=== PATIENT | female | born 2005 | race Two or more races ===

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

== ENCOUNTER 2024-04-29 19:55 | Emergency (ER) | payer OTHER, SELFPAY ==
[2024-04-29 19:57] VITALS: BP 115/79; PULSE 87; RESP 16; TEMP 36.9; O2SAT 97; BMI 30.9
--- NOTE | 2024-04-29 20:00 | ED.GENADULT ---
HPI - General Adult General Chief complaint: General Medical Stated complaint: Lip redness Time Seen by Provider: 04/29/24 20:02 Source: patient Mode of arrival: ambulatory Limitations: no limitations History of Present Illness ED Provider: Mine Roca PA-C HPI narrative: Patient is a 18 year old assigned female at with no reported medical history presenting to the emergency department today with a lower lip rash. Patient states that she went out last night, drinking, and this morning saw a rash to her inner lower lip. Patient states that she did not hit her lip and did not engage in any activity that would have injured her lip. Patient states that she does have a nervous habit of rubbing her lower lip with her upper lip which would put pressure on the lower lip against the teeth. Patient denies any dizziness, lightheadedness, abdominal pain, nausea, vomiting, fever, chills, blurry vision, double vision, loss of vision, chest pain, difficulty breathing, shortness of breath, back pain, night sweats, pain with urination, increased urinary frequency, increased urinary urgency, blood in her urine or stool, syncope or a near syncopal episode, recent trauma or falls, bowel incontinence, bladder incontinence, or any other complaints at this time. Location: mouth Relieving factors: none Exacerbating factors: none Associated symptoms: denies other symptoms Treatments prior to arrival: none Related Data Previous Rx's ?Medication ?Instructions ?Recorded cefuroxime axetil 500 mg tablet 500 mg PO BID 7 days #14 tabs 10/08/21 naproxen 500 mg tablet 500 mg PO BID PRN pain 7 days #14 07/25/22 tabs Allergies Allergy/AdvReac Type Severity Reaction Status Date / Time No Known Allergies Allergy Verified 04/29/24 19:58 Review of Systems Constitutional: Constitutional: Reports no additional constitutional complaints, Denies chills, Denies fever(s) and Denies night sweats Eyes: Eyes: Reports no additional eye complaints, Denies blurry vision, Denies change in vision, Denies diplopia, Denies eye discharge, Denies loss of vision and Denies eye pain ENT: Denies dizziness Comments: lower lip bruising Cardiovascular: Cardiovascular: Reports no additional cardiovascular complaints, Denies chest pain, Denies lightheadedness, Denies Loss of Consciousness and Denies dyspnea Respiratory: Respiratory: Reports no additional respiratory complaints and Denies dyspnea Gastrointestinal: Gastrointestinal: Reports no additional gastrointestinal complaints, Denies abdominal pain, Denies melena, Denies hematochezia, Denies change in bowel habits and Denies change in stool character Genitourinary: Genitourinary: Denies hematuria, Denies urinary frequency, Denies dysuria, Denies urinary incontinence, Denies urinary hesitancy and Denies urinary urgency Musculoskeletal: Musculoskeletal: Reports no additional musculoskeletal complaints, Denies numbness and Denies tingling Neurologic: Denies dizziness, Denies loss of vision, Denies numbness and Denies tingling Psychiatric: Psychiatric: Reports no additional psychiatric complaints Endocrine: Endocrine: Reports no additional endocrine complaints Hematologic/Lymphatic: Hematologic/Lymphatic: Reports no additional hematologic/lymphatic complaints Allergic/Immunologic: Allergic/Immunologic: Reports no additional allergic/immunologic complaints PMFSH Past Medical History Attestation statement: The following information was validated with the patient. Source: old records reviewed and nursing notes reviewed Physical Exam ED Vital Signs: Vital Signs - 24 hr 04/29/24 19:57 Temperature 98.4 F Pulse Rate 87 Respiratory Rate 16 Blood Pressure 115/79 Pulse Oximetry 97 Oxygen Delivery Method Room Air BMI result Body Mass Index 30.9 Const General: cooperative, no acute distress, alert and awake Nutritional Appearance: well nourished Orientation/consciousness: patient oriented x3 Limitations: no limitations HENMT Head: Yes normal to inspection and Yes atraumatic Ears: hearing grossly normal bilaterally and external ears normal General nose exam: Normal external nose present, no nasal discharge noted and no epistaxis Face and sinus: Yes normal facial exam, No abrasion and No laceration Mouth: no drooling, lip abnormal (broken blood vessels / bruising present to the intraoral lower lip) and no muffled voice Eyes General: appearance normal, both eyes and all related structures Periorbital: periorbital findings normal Eyelids: Yes eyelids normal Conjunctivae: conjunctivae normal Pupils: Equal, round and reactive pupils present EOM: EOMs intact bilaterally Neck Neck: Yes normal visual inspection, Yes full ROM and Yes no lymphadenopathy Chest Chest palpation & inspection: normal inspection of the chest Resp Effort & Inspection: normal respiratory effort and able to speak in complete sentences GI Inspection: Yes normal to inspection Neuro General: patient oriented x3 and moves all extremities Cranial nerves: Yes Equal, round and reactive pupils present Cognition (Neuro): normal cognition Extrem General: Yes normal to inspection, Yes full ROM and Yes capillary refill normal Psych Appearance: grossly normal Mental Status: mental status grossly normal Affect: normal affect Attitude: cooperative Thought process: Normal thought process present Thought content: Normal thought content present Insight: Good insight present (Psych) Medical Decision Making Medical Decision Making MDM Narrative: Patient is a 18 year old assigned female at with no reported medical history presenting to the emergency department today with a lower lip rash. Patient's physical exam showed a contusion to the intraoral portion of the lower lip. I explained my physical exam findings to the patient. I answered all questions asked by the patient. Patient's clinical presentation is most consistent with a contusion of the lower lip, likely secondary to her nervous tick of rubbing her lower lip with her upper lip against her lower teeth. I stressed the importance of the patient taking her medication as directed (either prescribed or as the over the counter packaging recommends). I stressed the importance of the patient following up with her primary care provider. I stressed the importance of the patient returning to the emergency department immediately if her symptoms were to worsen or if she were to develop any dizziness, shortness of breath, difficulty breathing, chest pain, blurry vision, loss of vision, nausea, vomiting, abdominal pain, fever, chills, back pain, or any other complaints. Patient verbalized agreement and understanding with this treatment plan and discharge. Differential Diagnosis Differential Diagnoses: The differential diagnosis associated with the presentation includes Lower lip contusion Admission/Observation Consideration of admission/observation: Escalation of care including admission/observation considered Patient would have been admitted to the hospital had her clinical presentation warranted hospital admission. Discharge Plan Discharge Clinical Impression: Contusion of intraoral surface of lip Patient Disposition: Home, Self-Care Instructions: Contusion in Adults (ED), Ice Pack Application (ED) Additional Instructions: Follow up with your primary care provider. Return to the emergency department immediately if your symptoms worsen or if you develop any dizziness, shortness of breath, difficulty breathing, chest pain, blurry vision, loss of vision, nausea, vomiting, abdominal pain, fever, chills, back pain, or any other complaints. Prescriptions: No Action cefuroxime axetil 500 mg tablet 500 mg PO BID 7 Days Qty: 14 0RF naproxen 500 mg tablet 500 mg PO BID PRN (Reason: pain) 7 Days Qty: 14 0RF Referrals: Sarah Gruber MD [Primary Care Provider] - Print Language: Georgian
[2024-04-29 20:12] VITALS: BP 115/79; PULSE 87; RESP 16; TEMP 36.9; O2SAT 97
== END 2024-04-29 20:07 | disposition home or self-care (01) ==
PROVIDERS: Emergency Provider Internal Medicine; PCP Pediatrics
DX: S00.531A Contusion of lip, initial encounter (principal); X58.XXXA Exposure to other specified factors, initial encounter; Y93.9 Activity, unspecified; Y92.9 Unspecified place or not applicable; Y99.8 Other external cause status
CPT/HCPCS: 99282

== ENCOUNTER 2024-08-25 21:53 | Emergency (ER) | payer OTHER, SELFPAY ==
--- NOTE | ~2024-08-25 | XR_ITS ---
CLINICAL HISTORY: pain on inspiration 1 view chest x-ray. Comparison: CR/SR - XR CHEST 2V - 07/25/22 18:37 EST Findings: No consolidation, pneumothorax, or effusion. Heart size normal. Impression: 1. No acute cardiopulmonary process. No focal pulmonary consolidation. This document has been electronically signed by: Colt De La Rosa MD on 08/25/2024 22:45:42
[2024-08-25 21:55] VITALS: BP 133/78; PULSE 91; RESP 16; TEMP 37.1; O2SAT 95; BMI 30.7
[2024-08-25 22:42] LABS: Anion Gap 13 (12-20); Blood Urea Nitrogen 23 mg/dL (9-16); Calcium 9.7 mg/dL (8.4-10.2); Carbon Dioxide 26 mmol/L (22-29); Chloride 104 mmol/L (96-108); Creatinine Clr Calc Pharmacy 103.3; Estimated Glomerular Filt Rate > 60; Glucose Random 113 mg/dL (60-115); Potassium 3.7 mmol/L (3.3-5.1); Sodium 139 mmol/L (135-145)
[2024-08-25 23:06] LABS: Influenza A PCR NEGATIVE (Negative); Influenza B PCR NEGATIVE (Negative); Resp Syncy Virus RNA Qual PCR NEGATIVE (Negative); SARS COV2 PCR INHOUSE NEGATIVE (Negative)
--- NOTE | 2024-08-25 23:34 | ECG_ITS ---
Test Reason : CHEST PAIN Blood Pressure : */* mmHG Vent. Rate : 85 BPM Atrial Rate : 85 BPM P-R Int : 164 ms QRS Dur : 86 ms QT Int : 388 ms P-R-T Axes : 44 81 38 degrees QTcB Int : 461 ms Normal sinus rhythm Normal ECG When compared with ECG of 25-Aug-2022 22:00, No significant change was found Referred By: Terri Reyes Electronically Signed By: KRYSTAL FIGUEROA MD
--- NOTE | 2024-08-25 23:34 | ED.CHESTPAIN ---
HPI - Chest Pain General Chief Complaint: Chest Pain Stated Complaint: chest pain Time Seen by Provider: 08/25/24 23:31 Source: patient Limitations: no limitations History of Present Illness ED Provider: Terri Reyes PA-C HPI narrative: 19-year-old female presents with chest pain x2 weeks. Patient having pain associated with the left breast. Discomfort is worse with inspiration, palpation of the breast and chest wall. Patient denies new heavy living, new activity trauma that could have precipitated her symptoms. Denies recent cough or cold symptoms. Denies unilateral calf pain or swelling, use of OCPs, hemoptysis, recent surgery or recent travel, no prior history of DVT. No discharge from the nipple, no fever. Related Data Previous Rx's ?Medication ?Instructions ?Recorded cefuroxime axetil 500 mg tablet 500 mg PO BID 7 days #14 tabs 10/08/21 naproxen 500 mg tablet 500 mg PO BID PRN pain 7 days #14 07/25/22 tabs Allergies Allergy/AdvReac Type Severity Reaction Status Date / Time No Known Allergies Allergy Verified 08/25/24 21:57 Review of Systems Review of Systems: Yes all other systems are reviewed and are negative Constitutional: Constitutional: Denies fatigue and Denies fever(s) Cardiovascular: Cardiovascular: Reports chest pain and Denies dyspnea Respiratory: Respiratory: Denies cough, Reports pain on inspiration and Denies dyspnea Gastrointestinal: Gastrointestinal: Denies abdominal pain, Denies nausea and Denies vomiting Endocrine: Endocrine: Denies fatigue [facility] Past Medical History Attestation statement: The following information was validated with the patient. Social History Social History Advance Directives: No Do you have a plan to hurt others: No Plan Physical Exam Vital Signs: Vital Signs: Last Vital Signs Temp 97.8 F 08/26/24 01:44 Pulse 83 08/26/24 01:44 Resp 16 08/26/24 01:44 BP 113/67 08/26/24 01:44 Pulse Ox 97 08/26/24 01:44 O2 Del Method Room Air 08/26/24 01:44 BMI result Body Mass Index 30.7 Const: Other: Alert well-appearing Orientation/consciousness: patient oriented x3 Chest: Other: Pain reproducible with palpation of chest wall in relation to the left breast, the left breast tissue was unremarkable, no discharge from the nipple Resp: Effort & Inspection: normal respiratory effort Cardio: Other: Normal peripheral perfusion Skin: Other: Warm dry no rash Neuro: General: patient oriented x3, gait normal, no focal motor deficits and CN's II-XI intact bilaterally Psych: Other: Cooperative Medications Administered Discontinued Medications Generic Name Dose Route Start Last Admin Trade Name Coco PRN Reason Stop Dose Admin Ibuprofen 600 mg 08/26/24 01:17 08/26/24 01:42 Ibuprofen 600 Mg Tablet PO 08/26/24 01:18 600 mg ONCE ONE Administration Medical Decision Making Medical Decision Making MDM Narrative: 19-year-old female presents with chest pain x2 weeks. Patient having pain associated with the left breast. Discomfort is worse with inspiration, palpation of the breast and chest wall. Patient denies new heavy living, new activity trauma that could have precipitated her symptoms. Denies recent cough or cold symptoms. Denies unilateral calf pain or swelling, use of OCPs, hemoptysis, recent surgery or recent travel, no prior history of DVT. No discharge from the nipple, no fever. No underlying chronic issues History: Per patient I have considered the following differential diagnoses: Chest wall strain, costochondritis, ACS, PE, breast cancer, mastitis, fibroids Plan: In regard to the chest pain, it was consistent with chest wall pain, and it was more so related to the breast itself. The exam of the rest was unremarkable, I will recommend to the patient she requires an outpatient mammogram. She could simply have fibroids given her age. Thought about costochondritis, however she has not had preceding thought about PE, however she is PERC negative. ACS was considered, her symptoms are not consistent with ACS and she has no risk factors for coronary artery disease, screening labs including EKG chest x-ray and troponin were obtained. I have independently reviewed the following tests: Labs: No leukocytosis, not anemic, no electrolyte abnormality, viral panel negative, not , troponin negative EKG: Normal sinus rhythm, rate 85, no ischemic changes no ectopy Chest x-ray:Findings: No consolidation, pneumothorax, or effusion. Heart size normal. Impression: 1. No acute cardiopulmonary process. No focal pulmonary consolidation. Lab Data 08/25/24 22:22 Labs: Lab Results 08/25/24 08/25/24 Range/Units 22:22 22:23 Hold Purple Top SEE NOTE Sodium 139 (135-145) mmol/L Potassium 3.7 (3.3-5.1) mmol/L Chloride 104 (96-108) mmol/L Carbon Dioxide 26 (22-29) mmol/L Anion Gap 13 (12-20) BUN 23 H (9-16) mg/dL Creatinine 0.79 (0.5-1.4) mg/dL Estim Creat Clear Calc 103.3 Estimated GFR > 60 Random Glucose 113 (60-115) mg/dL Calcium 9.7 (8.4-10.2) mg/dL Troponin I High Sens < 2.7 (<3.5-17.0) ng/L Beta HCG, Quant < 2 mIU/mL Influenza Type A (PCR) NEGATIVE (Negative) Influenza Type B (PCR) NEGATIVE (Negative) RSV RNA Qual (PCR) NEGATIVE (Negative) SARS-CoV-2 RNA (RT-PCR) NEGATIVE (Negative) Discharge Plan Discharge Clinical Impression: Chest wall pain, Breast pain, left Patient Disposition: Home, Self-Care Instructions: Chest Wall Pain (ED) Additional Instructions: All of your screening labs including a cardiac enzymes were normal. The viral panel was negative. The chest x-ray is clear. There were no concerning changes on your EKG. Your discomfort is consistent with chest wall and left breast pain. See home care instructions. You can use [id number] ibuprofen 600 mg taken every 6 hours with food for your pain. I do recommend that you have an outpatient mammogram, to assess the breast pain. You can call your primary care provider for referral to get this study performed. Prescriptions: No Action cefuroxime axetil 500 mg tablet 500 mg PO BID 7 Days Qty: 14 0RF naproxen 500 mg tablet 500 mg PO BID PRN (Reason: pain) 7 Days Qty: 14 0RF Stand Alone Forms: Work/School Release Interventions: ED Discharge Assessment Last Done: 08/26/24 01:44 Discharge Date/Time: 08/26/24 01:45 Print Language: French
[2024-08-25 23:47] VITALS: BP 118/68; PULSE 81; RESP 15; TEMP 37.1; O2SAT 97
--- NOTE | 2024-08-25 23:48 | MHC.EDTECH ---
This pct just assumed care of Patient ,vitals taken ,Patient ekg taken and was read by Provider ,Patient was change into hospital attire and hooked up to sander hand ,Patient mom at bed side .Call jiang within Pt reach .
[2024-08-25 23:57] LABS: Troponin-I High Sensitivity < 2.7 ng/L (<3.5-17.0)
[2024-08-26 00:02] LABS: HCG Quantitative < 2 mIU/mL
[2024-08-26 01:34] VITALS: BP 113/67; PULSE 83; RESP 16; TEMP 36.6; O2SAT 97
[2024-08-26] MEDS: Ibuprofen 600 MG TABLET PO (01:42)
[2024-08-26 01:44] VITALS: BP 113/67; PULSE 83; RESP 16; TEMP 36.6; O2SAT 97
== END 2024-08-26 01:45 | disposition home or self-care (01) ==
PROVIDERS: Physician Assistant Medical; Emergency Provider Emergency Medicine Emergency Medical Services; PCP Pediatrics
DX: R07.89 Other chest pain (principal); N64.4 Mastodynia; Z03.818 Encounter for observation for suspected exposure to other biological agents ruled out
CPT/HCPCS: 0241U; 36415; 71045; 80048; 84484; 84702; 93005; 99283; 99284

== ENCOUNTER → 2024-08-25 21:59 | Outpatient (BNV) | payer OTHER, SELFPAY | PROVIDERS: PCP Pediatrics; Visit Provider Radiology Diagnostic Radiology | DX: R07.9 Chest pain, unspecified (principal) | CPT/HCPCS: 71045 ==

== ENCOUNTER → 2024-08-25 23:34 | Outpatient (BNV) | payer OTHER, SELFPAY | PROVIDERS: Emergency Provider Emergency Medicine Emergency Medical Services; PCP Pediatrics; Visit Provider Internal Medicine Cardiovascular Disease | DX: R07.9 Chest pain, unspecified (principal) | CPT/HCPCS: 93010 ==